=== PATIENT | female | born 1960 | race Two or more races ===

== ENCOUNTER 2021-12-02 14:08 | Emergency (ER) | payer MEDICARE, BC, SELFPAY ==
[2021-12-02 14:19] VITALS: BP 114/68; PULSE 76; RESP 18; TEMP 36.6; O2SAT 99; BMI 18.2
--- NOTE | 2021-12-02 14:29 | CRLHL7_ITS ---
For Patients: As a result of the Century Cures Act, medical imaging exams and procedure reports are released immediately into your electronic medical record. You may view this report before your referring provider. If you have questions, please contact your health care provider. INDICATION: Injury. TECHNIQUE: CT cervical spine without contrast. Coronal and sagittal reformats were generated. COMPARISON: None. FINDINGS: Vertebrae: Alignment is normal. No fractures or suspicious bony lesions. Discs and facet joints: Mild degenerative changes are most prominent at C5-C6 and consists of mild disc space narrowing and small marginal osteophytes. Extraspinal findings: Prevertebral soft tissues, visualized airway, and visualized lungs are unremarkable. IMPRESSION: Unremarkable cervical spine CT. Please note that all CT scans at this facility use dose modulation, iterative reconstruction, and/or weight-based dosing when appropriate to reduce radiation dose to as low as reasonably achievable. Dictated by Wilmar Godwin MD @ 12/02/2021 3:04:56 PM (Electronically Signed)
--- NOTE | 2021-12-02 14:44 | CRLHL7_ITS ---
For Patients: As a result of the Century Cures Act, medical imaging exams and procedure reports are released immediately into your electronic medical record. You may view this report before your referring provider. If you have questions, please contact your health care provider. INDICATION: Fall, injury. TECHNIQUE: CT head without contrast. Coronal and sagittal reformats were generated. COMPARISON: None. FINDINGS: CSF spaces: Within normal limits for age. Brain parenchyma and extra-axial spaces: The elizabeth-white differentiation is normal. No sign of mass, hemorrhage, or midline shift. No extra-axial fluid collection. Skull base and calvarium: The visualized paranasal sinuses and mastoid air cells demonstrate no acute or significant findings. The visualized orbits are grossly unremarkable. No skull fractures. IMPRESSION: No acute intracranial abnormality. Please note that all CT scans at this facility use dose modulation, iterative reconstruction, and/or weight-based dosing when appropriate to reduce radiation dose to as low as reasonably achievable. Dictated by Wilmar Godwin MD @ 12/02/2021 3:05:57 PM (Electronically Signed)
--- NOTE | 2021-12-02 15:04 | ED.GENADULT ---
HPI - General Adult General Time Seen by Provider: 15:04 Date Seen: 12/02/21 Chief complaint: Neck Injury/Pain Stated complaint: Fell two days ago neck pain Time Seen by Provider: 12/02/21 14:33 Source: patient Mode of arrival: ambulatory Limitations: no limitations History of Present Illness HPI narrative: Patient is a 61-year-old female who fell while painting off a table and fell backwards from a few feet. Landed on her back and neck and head area she continues to have some midline neck discomfort special and and a little bit a right-sided neck discomfort in her cervical strap muscles at the base of her skull. She thinks she might have got knocked out briefly as well although not sure about that she has no significant headache now. No other back pain arm or leg symptoms no other neurologic complaints. She simply lost balance. She has generally been quite healthy. Related Data Home Medications Medication Instructions Recorded Confirmed fluoxetine 40 mg capsule (Prozac) 40 mg PO DAILY 12/02/21 12/02/21 gabapentin 300 mg capsule 300 mg PO TID 12/02/21 12/02/21 pantoprazole 20 mg tablet,delayed 20 mg PO DAILY 12/02/21 12/02/21 release (Protonix) Allergies Allergy/AdvReac Type Severity Reaction Status Date / Time carbamazepine [From Tegretol] Allergy Verified 12/02/21 14:23 Review of Systems Status of ROS: Reports: 6 or more systems reviewed and unremarkable except as noted in History and below [facility] Medical History (Updated 12/02/21 @ 15:27 by Kacie Dotson RN) Anxiety Depression Migraine Surgical History (Updated 12/02/21 @ 15:27 by Kacie Dotson RN) No significant past surgical history Social History Smoking Status: Never smoker How often do you have a drink containing alcohol: never AUDIT-C Alcohol total score: 0 Non-prescribed substance use: denies use Exam Narrative: Exam Narrative: Objective: The patient is alert orient x3, pleasant, no distress Neck shows some mild cervical strap muscle tenderness on the right side no midline tenderness Lateral bending is fairly normal rotation is normal to about 80? bilaterally normal strength sensation upper lower extremities chest back back abdomen unremarkable and no complaints. Patient is ambulatory without difficulty. Peripheral exam shows skin warm and dry good peripheral perfusion CT scan of the head and neck pending Const: Vital Signs, click to edit/add: Vital Signs - 24 hr 12/02/21 14:19 Temperature 97.8 F Pulse Rate [Right Pulse Oximeter] 76 Respiratory Rate 18 Blood Pressure [Ri ght Upper Arm] 114/68 Pulse Oximetry 99 Oxygen Delivery Me thod Room Air Course Vital Signs Vital signs: Initial Vital Signs Temperature 97.8 F 12/02/21 14:19 Temperature Source Temporal Artery Scan 12/02/21 14:19 Pulse Rate 76 12/02/21 14:19 Respiratory Rate 18 12/02/21 14:19 Blood Pressure 114/68 12/02/21 14:19 Blood Pressure Mean 83 12/02/21 14:19 Blood Pressure Position Sitting 12/02/21 14:19 Pulse Oximetry 99 12/02/21 14:19 Oxygen Delivery Method 12/02/21 14:19 Vital Signs Temperature 97.8 F 12/02/21 14:19 Pulse Rate 76 12/02/21 14:19 Respiratory Rate 18 12/02/21 14:19 Blood Pressure 114/68 12/02/21 14:19 Pulse Oximetry 99 12/02/21 14:19 Oxygen Delivery Method 12/02/21 14:19 Temperature 97.8 F 12/02/21 14:19 Pulse Rate 76 12/02/21 14:19 Respiratory Rate 18 12/02/21 14:19 Blood Pressure 114/68 12/02/21 14:19 Pulse Oximetry 99 12/02/21 14:19 Oxygen Delivery Method 12/02/21 14:19 Medical Decision Making MDM Narrative Medical decision making narrative: Patient will get a CT scan of her head neck given she still has persistent neck pain and may have loss conscious during this fall 2 days ago. Will review these as a return, will give her prednisone 50 mg orally x1 now and then Toradol 10 mg orally Addendum: The patient's head and neck CT showed chronic changes but no acute findings, recommend she continue Aleve 2 twice a day over the next 3-5 days, ice to the neck area, Tylenol as needed, follow-up Dr. Her Medrano next few days as well. Light activity Discharge Plan Discharge Clinical Impression: Acute neck pain Patient Disposition: Home, Self-Care Condition: Stable Additional Instructions: Light activity recommended ice to the neck as needed, Aleve 2 twice a day for the next 5-7 days Tylenol as needed, follow up with primary care in 2 days for reassessment may consider physical therapy or other modality if not improving. Activity Level: Light activity Discharge Diet: Regular Prescriptions: No Action fluoxetine [Prozac] 40 mg capsule 40 mg PO DAILY gabapentin 300 mg capsule 300 mg PO TID pantoprazole [Protonix] 20 mg tablet,delayed release (DR/EC) 20 mg PO DAILY Follow Up/Referrals: Lakshmi Elizalde MD [Primary Care Provider] - Stand Alone Forms: [employer] Info Instructions
[2021-12-02] MEDS: KETOROLAC 10 MG TABLET PO (15:19)
[2021-12-02] MEDS: predniSONE 10 MG TABLET 50 MG PO (15:21)
== END 2021-12-02 15:44 | disposition home or self-care (01) ==
LOC: ED 15:47
PROVIDERS: Emergency Provider Family Medicine; PCP Family Medicine
DX: M54.2 Cervicalgia (principal)
CPT/HCPCS: 70450; 72125; 99283; 99284; A9270; J7512

== ENCOUNTER 2023-01-22 15:30 | Emergency (ER) | payer BC, MEDICARE, SELFPAY ==
[2023-01-22 15:39] VITALS: BP 123/82; PULSE 99; RESP 16; TEMP 37.1; O2SAT 99; BMI 20.5
--- NOTE | 2023-01-22 15:44 | ED.NURSE ---
Pt has undressed and currently has all belongings, except for phone, in a belongings bag. Security is currently performing inventory on her belongings at this time.
--- NOTE | 2023-01-22 16:05 | ED.PSYCH ---
HPI - Psych General Date Seen: 01/22/23 Chief Complaint: Altered Mental Status Stated Complaint: suicidal Time Seen by Provider: 01/22/23 15:33 Source: patient Mode of arrival: ambulatory Limitations: no limitations History of Present Illness HPI Narrative: Patient is a 62-year-old female with history of depression presenting to the emergency department for suicidal ideation. She states she has been having issues with depression for a while and has been hospitalized several times for it. She has gone to [facility] now multiple times and has been trying the electroconvulsive therapy. She states that will help for the while then she will become depressed again. She was last admitted in December. She states her plan would be to overdose on gabapentin. She thinks she needs her medications adjusted. Denies visual or auditory hallucinations. States occasionally she will her here sounds but she states she has never heard a voice. Denies chest pain, shortness of breath, fevers, chills, weakness, numbness, headache, vision changes. Related Data Home Medications Medication Instructions Recorded Confirmed fluoxetine 40 mg capsule (Prozac) 40 mg PO DAILY 12/02/21 12/02/21 gabapentin 300 mg capsule 300 mg PO TID 12/02/21 12/02/21 pantoprazole 20 mg tablet,delayed 20 mg PO DAILY 12/02/21 12/02/21 release (Protonix) Allergies Allergy/AdvReac Type Severity Reaction Status Date / Time carbamazepine [From Tegretol] Allergy Verified 01/22/23 15:43 Review of Systems Status of ROS: Reports: 10 or more systems reviewed and unremarkable except as noted in History and below [facility] Medical History Anxiety ?F41.9 - Anxiety disorder, unspecified (ICD-10) Depression ?F32.A - Depression, unspecified (ICD-10) Migraine ?G43.909 - Migraine, unspecified, not intractable, without status migrainosus (ICD-10) Surgical History No significant past surgical history Social History Smoking Status: Never smoker How often do you have a drink containing alcohol: never AUDIT-C Alcohol total score: 0 Non-prescribed substance use: denies use Exam Narrative: Exam Narrative: Const: Well-nourished, Well-developed, in mild distress Eyes: PERRL, no conjunctival injection, and symmetrical lids HENT: Atraumatic external nose and ears. Moist mucous membranes. Neck: Symmetric, trachea midline, No thyromegaly. CVS: RRR, No murmurs or gallops. Peripheral pulses 2+ and equal in all extremities RESP: Unlabored respiratory effort. Clear to auscultation bilaterally. GI: Nontender/Nondistended, No rebound or guarding. MSK:Extremities w/o deformity, Normal Active ROM Skin: Warm, Dry. No rashes or lesions. Neuro: Normal Muscle tone, No focal neurological deficits. Psych: Awake, Alert, & Oriented x3. Appropriate mood and affect. Const: Vital Signs, click to edit/add: Vital Signs - 24 hr 01/22/23 15:39 Temperature 98.7 F Pulse Rate [Right Pulse Oximeter] 99 Respiratory Rate 16 Blood Pressure [Ri ght Upper Arm] 123/82 Pulse Oximetry 99 Oxygen Delivery Me thod Room Air Course Vital Signs Vital signs: Initial Vital Signs Temperature 98.7 F 01/22/23 15:39 Temperature Source Temporal Artery Scan 01/22/23 15:39 Pulse Rate 99 01/22/23 15:39 Pulse Rhythm Regular 01/22/23 15:39 Pulse Strength 3+ Normal 01/22/23 15:39 Respiratory Rate 16 01/22/23 15:39 Blood Pressure 123/82 01/22/23 15:39 Blood Pressure Mean 95 01/22/23 15:39 Blood Pressure Position Sitting 01/22/23 15:39 Pulse Oximetry 99 01/22/23 15:39 Oxygen Delivery Method Room Air 01/22/23 15:39 Vital Signs Temperature 98.7 F 01/22/23 15:39 Pulse Rate 99 01/22/23 15:39 Respiratory Rate 16 01/22/23 15:39 Blood Pressure 123/82 01/22/23 15:39 Pulse Oximetry 99 01/22/23 15:39 Oxygen Delivery Method Room Air 01/22/23 15:39 Temperature 98.7 F 01/22/23 15:39 Pulse Rate 99 01/22/23 15:39 Respiratory Rate 16 01/22/23 15:39 Blood Pressure 123/82 01/22/23 15:39 Pulse Oximetry 99 01/22/23 15:39 Oxygen Delivery Method Room Air 01/22/23 15:39 MDM - Psych MDM Narrative Medical decision making narrative: Patient is 62 female presenting to emergency department for suicidal ideation. She has had multiple hospitalizations and states she has a plan. Patient was placed in a safe room. Lab work was ordered for mental health evaluation. Patient agrees to a DEC assessment. CBC, CMP, acetaminophen level, salicylate level, ethanol level all returned showing no concerning abnormalities. After she was evaluated by DEC they recommended inpatient treatment and she is agreeable to this plan right now. Drug screen shows tricyclic antidepressants, benzodiazepines, marijuana. COVID/flu/RSV is negative. Patient has been stable throughout her time in emergency department. She is accepted at [facility] and the fever falls. She is medically cleared for transfer. Lab Data Labs: Lab Results 01/22/23 01/22/23 01/22/23 Range/Units 16:00 17:18 18:15 WBC 6.45 (4.50-11.00) K/uL RBC 5.01 (4.00-5.20) m/uL Hgb 14.1 (12.0-16.0) gm/dL Hct 42.2 (33.0-51.0) % MCV 84 (80-100) fL MCH 28 (26-34) pg MCHC 33 (32-36) gm/dL RDW Coeff of [place]aston 14.0 (11.5-15.5) % Plt Count 341 (140-440) K/uL Neut % (Auto) 69.9 (42.0-72.0) % Lymph % (Auto) 21.9 (20-44) % [place] % (Auto) 6.4 (0.0-11.0) % Eos % (Auto) 0.8 (0.0-7.0) % Baso % (Auto) 0.5 (0.0-3.0) % Neut # (Auto) 4.52 (1.7-7.0) K/uL Lymph # (Auto) 1.41 (0.90-2.90) K/uL [place] # (Auto) 0.40 (0.00-0.90) K/UL Eos # (Auto) 0.05 (0.00-0.50) K/uL Baso # (Auto) 0.03 (0.00-0.30) K/uL Abs Immat Gran (auto) 0.03 (0.00-0.30) K/uL Imm/Tot Granulo (auto) 0.5 % Sodium 137 (135-149) mmol/L Potassium 3.7 (3.6-5.1) mmol/L Chloride 106 (96-114) mmol/L Carbon Dioxide 22 (20-32) mmol/L Anion Gap 9 (7-15) mEq/L BUN 16 (7-30) mg/dL Creatinine 0.9 (0.5-1.5) mg/dL Estimated Creat Clear 47.63 Estimated GFR 72 ml/min Glucose 113 (60-115) mg/dL Calcium 8.7 (8.4-10.6) mg/dL Total Bilirubin 0.5 (0.1-1.5) mg/dL AST 42 H (12-35) U/L ALT 22 (4-35) U/L Alkaline Phosphatase 80 (40-150) U/L Total Protein 7.5 (6.0-8.3) g/dL Albumin 4.4 (3.3-5.0) g/dL Urine Color Yellow (Yellow) Urine Appearance Clear (Clear) Urine pH 6.0 (5.0-8.5) Ur Specific [place] 1.025 (1.000-1.030) Urine Protein Negative (Negative) Urine Glucose (UA) Negative (Negative) Urine Ketones Negative (Negative) Urine Blood Negative (Negative) Urine Nitrite Negative (Negative) Urine Bilirubin Negative (Negative) Urine Urobilinogen 0.2 (0.2-1.0) Ur Leukocyte Esterase Negative (Negative) Salicylates < 1.0 L (1.0-10) mg/dL Urine Opiates Screen Negative (Negative) Ur Oxycodone Screen Negative (Negative) Urine Methadone Screen Negative (Negative) Ur Propoxyphene Screen Negative (Negative) Acetaminophen < 10.0 L (10.0-30.0) ug/mL Ur Barbiturates Screen Negative (Negative) U Tricyclic Antidepress POSITIVE A (Negative) Ur Phencyclidine Scrn Negative (Negative) Ur Amphetamines Screen Negative (Negative) U Methamphetamines Scrn Negative (Negative) U Benzodiazepines Scrn POSITIVE A (Negative) Urine Cocaine Screen Negative (Negative) U Marijuana (THC) Screen POSITIVE A (Negative) Ur Drug Screen Comment See Note Ethyl Alcohol < 0.01 L (0.01-0.03) % SARS-CoV-2 (PCR) Negative SARS-CoV-2 (Negative) Influenza Type A (PCR) Negative PCR FLU A (Negative) Influenza Type B (PCR) Negative PCR FLU B (Negative) RSV (PCR) Negative PCR RSV (Negative) Discharge Plan Discharge Clinical Impression: Suicidal ideation Patient Disposition: Xfer Other Condition: Stable Prescriptions: No Action fluoxetine [Prozac] 40 mg capsule 40 mg PO DAILY gabapentin 300 mg capsule 300 mg PO TID pantoprazole [Protonix] 20 mg tablet,delayed release (DR/EC) 20 mg PO DAILY Follow Up/Referrals: Lkashmi Elizalde MD [Primary Care Provider] - Stand Alone Forms: [employer] Info Instructions
[2023-01-22 16:06] LABS: Basophils Absolute Auto 0.03 K/uL (0.00-0.30); Basophils Percent Auto 0.5 % (0.0-3.0); Eosinophils Absolute Auto 0.05 K/uL (0.00-0.50); Eosinophils Percent Auto 0.8 % (0.0-7.0); Hematocrit 42.2 % (33.0-51.0); Hemoglobin* 14.1 gm/dL (12.0-16.0); Immature Granulocytes Abs Auto 0.03 K/uL (0.00-0.30); Immature Granulocytes Pct Auto 0.5 %; Lymphocytes Absolute Auto 1.41 K/uL (0.90-2.90); Lymphocytes Percent Auto 21.9 % (20-44); Mean Corpuscular HGB Conc 33 gm/dL (32-36); Mean Corpuscular Hemoglobin 28 pg (26-34); Mean Corpuscular Volume 84 fL (80-100); Monocytes Percent Auto 6.4 % (0.0-11.0); Neutrophils Absolute Auto 4.52 K/uL (1.7-7.0); Neutrophils Percent Auto 69.9 % (42.0-72.0); Platelet Count* 341 K/uL (140-440); Red Blood Count 5.01 m/uL (4.00-5.20); White Blood Count* 6.45 K/uL (4.50-11.00)
[2023-01-22 16:07] LABS: Slide Review Reflex No
[2023-01-22 16:18] LABS: Albumin* 4.4 g/dL (3.3-5.0); Chloride* 106 mmol/L (96-114)
[2023-01-22 16:19] LABS: Potassium* 3.7 mmol/L (3.6-5.1); Sodium* 137 mmol/L (135-149)
[2023-01-22 16:21] LABS: Alanine Aminotransferase* 22 U/L (4-35); Alkaline Phosphatase* 80 U/L (40-150); Anion Gap 9 mEq/L (7-15); Aspartate Amino Transferase* 42 U/L (12-35); Bilirubin Total* 0.5 mg/dL (0.1-1.5); Blood Urea Nitrogen* 16 mg/dL (7-30); Carbon Dioxide* 22 mmol/L (20-32); Creatinine* 0.9 mg/dL (0.5-1.5); Est. Creatinine Clearance* 47.63; Estimated Glomerular Filt Rate 72 ml/min; Total Protein* 7.5 g/dL (6.0-8.3)
[2023-01-22 16:22] LABS: Calcium* 8.7 mg/dL (8.4-10.6); Glucose* 113 mg/dL (60-115)
[2023-01-22 16:27] LABS: Acetaminophen* < 10.0 ug/mL (10.0-30.0); Ethanol* < 0.01 % (0.01-0.03); Salicylate* < 1.0 mg/dL (1.0-10)
--- NOTE | 2023-01-22 17:13 | ED.NURSE ---
Pt states that she is not hungry x3 and declines supper.
[2023-01-22 17:27] LABS: Appearance Urine Clear (Clear); Bilirubin Urine Negative (Negative); Blood Urine Negative (Negative); Color Urine Yellow (Yellow); Glucose Urine Negative (Negative); Ketones Urine Negative (Negative); Leukocyte Esterase Urine Negative (Negative); Nitrite Urine Negative (Negative); Protein Urine Negative (Negative); Specific Gravity Urine 1.025 (1.000-1.030); Urobilinogen Urine 0.2 (0.2-1.0)
[2023-01-22 17:33] LABS: Amphetamine Screen Urine Negative (Negative); Barbiturate Screen Urine Negative (Negative); Benzodiazepines Screen Urine POSITIVE (Negative); Cannabinoid Screen Urine POSITIVE (Negative); Cocaine Screen Urine Negative (Negative); Methadone Screen Urine Negative (Negative); Methamphetamines Screen Urine Negative (Negative); Opiate Screen Urine Negative (Negative); Oxycodone Screen Urine Negative (Negative); Phencyclidine Screen Urine Negative (Negative); Tricyclic Antidepressant Urine POSITIVE (Negative)
[2023-01-22 19:06] LABS: PCR FLU A Negative PCR FLU A (Negative); PCR FLU B Negative PCR FLU B (Negative); PCR RSV Negative PCR RSV (Negative)
[2023-01-22 19:20] LABS: SARS PCR* Negative SARS-CoV-2 (Negative)
--- NOTE | 2023-01-22 22:30 | ED.NURSE ---
Checked on patient numerous times during this shift. Pt calm, pleasant and cooperative. Pt declines anything to eat and has numerous cups of water to drink. Pt states she does not want medication to sleep, even tho this nurse has offered her meds. Pt does not want to brush her teeth either and has only requested one blanket this shift.
[2023-01-22 22:46] VITALS: BP 103/77; PULSE 96; RESP 16; TEMP 36.1; O2SAT 98
[2023-01-22] MEDS: hydrOXYzine pamoate 25 MG CAPSULE 50 MG PO (22:58)
[2023-01-23] MEDS: OLANZapine 5 MG TAB.RAPDIS PO (01:12)
[2023-01-23 05:20] VITALS: BP 108/74; PULSE 89; RESP 16; TEMP 36.7; O2SAT 98
--- NOTE | 2023-01-23 06:11 | ED.NURSE ---
report given to Rani NORWOOD @ [facility]. pt. on transport hold and voluntary at this time. vitals stable. video monitoring for safety.
[2023-01-23 07:47] VITALS: BP 134/86; PULSE 139; RESP 18; TEMP 36.7; O2SAT 95
[2023-01-23 09:27] VITALS: BP 104/73; PULSE 86; RESP 16; TEMP 37.3; O2SAT 97
--- NOTE | 2023-01-23 09:31 | ED.NURSE ---
woke for vitals and breakfast. EMS expected at 1000
== END 2023-01-23 10:34 | disposition other institution (70) ==
PROVIDERS: Student in an Organized Health Care Education/Training Program; Emergency Provider Family Medicine; PCP Family Medicine
DX: R45.851 Suicidal ideations (principal)
CPT/HCPCS: 36415; 80053; 80143; 80179; 80306; 81003; 82077; 85025; 87631; 99283; 99285; A9270

== ENCOUNTER 2023-01-23 10:19 | Outpatient (CLI) | payer MEDICARE, BC, SELFPAY | END 2023-01-23 10:20 | disposition home or self-care (01) | LOC: AMB 02-16 10:44 | PROVIDERS: Visit Provider Family Medicine | DX: R45.851 Suicidal ideations (principal) | CPT/HCPCS: A0425; A0428 ==

== ENCOUNTER 2023-04-13 14:18 | Outpatient (CLI) | payer BC, MEDICARE, SELFPAY | END 2023-04-13 14:19 | disposition home or self-care (01) | PROVIDERS: PCP Internal Medicine; Visit Provider Family Medicine | DX: R45.851 Suicidal ideations (principal) | CPT/HCPCS: A0425; A0429 ==

== ENCOUNTER 2023-08-02 10:09 | Emergency (ER) | payer BC, MEDICARE, SELFPAY ==
[2023-08-02 10:16] VITALS: BP 106/75; PULSE 93; RESP 18; TEMP 36.9; O2SAT 96; BMI 22.0
--- NOTE | 2023-08-02 10:18 | XR_ITS ---
Patient: ZEESHAN DURANMARLIN Facility:?[facility] Patient ID:?[id number] Site Patient ID:?[id number]. Site :?[id number] Study:?XRay-Chest 2 view-08/02/2023 10:46:39 AM Ordering Physician:?Malvin Jain Final Report: Indication: Fall, pain under right breast Comparison: None available. Technique: PA and lateral views of the chest Findings: There is hyperinflation and chronic interstitial change without evidence of dense consolidation, effusion or pneumothorax. The cardiomediastinal silhouette is within normal limits. The bony thorax is grossly intact. Impression: Hyperinflation and chronic interstitial change without evidence of dense consolidation. Dictated by Venkata Anderson MD @ 08/02/2023 10:52:08 AM Signed by:?Venkata Anderson MD @08/02/2023 10:52:08 AM (Electronic Signature)
--- NOTE | 2023-08-02 11:17 | CT_ITS ---
Patient: ZEESHAN SHIN [facility] Facility:?[facility] Patient ID:?[id number] Site Patient ID:?[id number]. Site :?[id number] Study:?CT-Chest 75CC ISOVUE 370-08/02/2023 12:59:35 PM Ordering Physician:?DR. BOBO Final Report: INDICATION: Trauma. Right chest wall pain. TECHNIQUE: Multiplanar CT examination of the chest was performed after the administration of 75 mL of Isovue 370 intravenous contrast. COMPARISON: Same-day chest radiographs. FINDINGS: Lower neck: The visualized thyroid is unremarkable. Cardiovascular: Heart size is normal. Thoracic aorta and pulmonary artery are normal in caliber. No significant atherosclerotic calcifications of the aortic arch. No significant coronary arterial calcifications. No large central pulmonary embolus. Mediastinum and lymph nodes: Unremarkable. No pathologic mediastinal or hilar lymphadenopathy by size criteria. Lungs: No focal consolidation. Dependent atelectasis. Linear bandlike opacification of the lung bases bilaterally, likely subsegmental atelectasis and/or scarring. Airways: The trachea remains patent and midline. Mild diffuse peribronchial wall thickening. Pleura: Small right-sided pleural effusion. No left pleural effusion or pneumothorax. Chest wall: Postsurgical changes of the right breast. Bones: Contour irregularity to the right 9th and 10th ribs posteriorly (4:51 and 4:56), suspicious for subtle acute nondisplaced fractures. Mild degenerative changes of the thoracic spine. Upper abdomen: Unremarkable. IMPRESSION: 1. Small right-sided pleural effusion with suspected acute nondisplaced fractures of the right 9th and 10th ribs posteriorly. 2. Postsurgical change within the right breast without underlying subjacent displaced acute rib fractures anteriorly. 3. No pneumothorax. Please note that all CT scans at this facility use dose modulation, iterative reconstruction, and/or weight-based dosing when appropriate to reduce radiation dose to as low as reasonably achievable. Dictated by Gumaro Vargas MD @ 08/02/2023 1:26:18 PM Signed by:?Gumaro Vargas MD @08/02/2023 1:26:18 PM (Electronic Signature)
[2023-08-02] MEDS: 0.9 % SODIUM CHLORIDE 1000 ml 1,000 ML IV (11:31)
[2023-08-02] MEDS: KETOROLAC 15 MG/ML inj IVP (11:38)
--- NOTE | 2023-08-02 12:06 | ED_ITS ---
HPI - General Adult General Date Seen: 08/02/23 Chief complaint: Fall/Minor Trauma Stated complaint: fall yesterday, lots of pain in chest Time Seen by Provider: 08/02/23 11:04 Source: patient Mode of arrival: ambulatory Limitations: no limitations History of Present Illness HPI narrative: Patient is a 63-year-old woman who says yesterday she was standing up on the counter in her bathroom by the sink replacing a light bulb. She lost her balance and fell off, she says she was holding the light bulb with her hand and so she really did not catch her fall, and instead her right chest hit the edge of the counter. She has had localized pain under the right breast since then. She has saline implants, and feels like the implant ?tore loose. She has pain with moving and pushing on the chest, but does deny pain with breathing. Does not feel short of breath. Tried some Tylenol and says that was not helpful. Has not noted any bruising or swelling, no deflation of the implant. Denies any head or neck, back or other injury. Related Data Home Medications Medication Instructions Recorded Confirmed fluoxetine 40 mg capsule (Prozac) 40 mg PO DAILY 12/02/21 02/15/23 gabapentin 300 mg capsule 300 mg PO TID 12/02/21 02/15/23 pantoprazole 20 mg tablet,delayed 20 mg PO DAILY 12/02/21 02/15/23 release (Protonix) amitriptyline 25 mg tablet 25 mg PO QPM 02/15/23 02/15/23 asenapine maleate 5 mg sublingual mg sublingual 02/15/23 02/15/23 tablet atorvastatin 40 mg tablet 40 mg PO DAILY 02/15/23 02/15/23 buspirone 10 mg tablet 10 mg PO BID 02/15/23 02/15/23 cariprazine 3 mg capsule (Vraylar) 3 mg PO DAILY 02/15/23 02/15/23 clonazepam 0.5 mg tablet mg PO 02/15/23 02/15/23 cyclobenzaprine 5 mg tablet 5 mg PO 3XD PRN 02/15/23 02/15/23 dextroamphetamine-amphetamine 20 1 tab PO DAILY 02/15/23 02/15/23 mg tablet diazepam 5 mg tablet 5 mg PO DAILY PRN 02/15/23 02/15/23 guanfacine 2 mg tablet,extended 2 mg PO DAILY 02/15/23 02/15/23 release 24 hr hydroxyzine HCl 50 mg tablet 50 mg PO 3XD 02/15/23 02/15/23 lorazepam 0.5 mg tablet 0.5 mg PO DAILY PRN 02/15/23 02/15/23 naproxen 500 mg tablet 500 mg PO BID 02/15/23 02/15/23 olanzapine 20 mg tablet 20 mg PO QPM 02/15/23 02/15/23 promethazine 25 mg tablet 25 mg PO Q12H PRN nausea/vomiting 02/15/23 02/15/23 rizatriptan 10 mg tablet mg PO 02/15/23 02/15/23 sumatriptan succinate 50 mg tablet mg PO 02/15/23 02/15/23 tizanidine 4 mg tablet mg PO 02/15/23 02/15/23 trazodone 150 mg tablet 150 mg PO QPM 02/15/23 02/15/23 Allergies Allergy/AdvReac Type Severity Reaction Status Date / Time carbamazepine [From Tegretol] Allergy Verified 02/15/23 08:45 Review of Systems Status of ROS: Reports: 10 or more systems reviewed and unremarkable except as noted in History and below PFSH [facility] Medical History Anxiety ?F41.9 - Anxiety disorder, unspecified (ICD-10) Depression ?F32.A - Depression, unspecified (ICD-10) Migraine ?G43.909 - Migraine, unspecified, not intractable, without status migrainosus (ICD-10) Surgical History No significant past surgical history Social History Smoking Status: Never smoker How often do you have a drink containing alcohol: never AUDIT-C Alcohol total score: 0 Non-prescribed substance use: denies use Little interest or pleasure in doing things: more than half the days Feeling down, depressed, or hopeless: more than half the days Exam Narrative: Exam Narrative: Vital signs as noted above. In general, an alert, well-appearing patient. Head: Normocephalic, atraumatic. Eyes: Pupils are equal reactive. Extraocular movements are full. Conjunctivae are normal. ENT: Mucous membranes are moist. Throat is normal. Neck: Supple without lymphadenopathy. Heart: Regular rate and rhythm. No murmur or rub. Lungs: Clear bilaterally. No increased work of breathing, crackles or wheezes. Chest wall is nontraumatic in appearance, no bruising, swelling, crepitus or subcu air. The implant feels normal and equal bilaterally. Abdomen: Soft and nontender. No organomegaly. Extremities: Well perfused. No edema. No calf tenderness. Pulses intact. Neurologic: Patient is alert and oriented to person and place. Speech is fluent. Face is symmetric. Moves all extremities equally. Affect: Normal. Skin: Warm and dry. Well perfused. Const: Vital Signs, click to edit/add: Vital Signs - 24 hr 08/02/23 10:16 Temperature 98.5 F Pulse Rate [Pulse Oximeter] 93 Respiratory Rate 18 Blood Pressure [Ri ght Upper Arm] 106/75 Pulse Oximetry 96 Oxygen Delivery Me thod Room Air Documenting provider has reviewed patient's vital signs: yes Course Course ED Course: I recommended that we pursue CT scan for her, I think regardless the most information in terms of possible rib fracture, pulmonary injury, as well as let us look for changes to the implant. She does request something for pain, will try Toradol to start. She did not note significant improvement with the Toradol, does not want anything else for here but does request something different for home. She went on to have a CT scan, I do not see any obvious rib fractures, radiology read as follows:FINDINGS: Lower neck: The visualized thyroid is unremarkable. Cardiovascular: Heart size is normal. Thoracic aorta and pulmonary artery are normal in caliber. No significant atherosclerotic calcifications of the aortic arch. No significant coronary arterial calcifications. No large central pulmonary embolus. Mediastinum and lymph nodes: Unremarkable. No pathologic mediastinal or hilar lymphadenopathy by size criteria. Lungs: No focal consolidation. Dependent atelectasis. Linear bandlike opacification of the lung bases bilaterally, likely subsegmental atelectasis and/or scarring. Airways: The trachea remains patent and midline. Mild diffuse peribronchial wall thickening. Pleura: Small right-sided pleural effusion. No left pleural effusion or pneumothorax. Chest wall: Postsurgical changes of the right breast. Bones: Contour irregularity to the right 9th and 10th ribs posteriorly (4:51 and 4:56), suspicious for subtle acute nondisplaced fractures. Mild degenerative changes of the thoracic spine. Upper abdomen: Unremarkable. IMPRESSION: 1. Small right-sided pleural effusion with suspected acute nondisplaced fractures of the right 9th and 10th ribs posteriorly. 2. Postsurgical change within the right breast without underlying subjacent displaced acute rib fractures anteriorly. 3. No pneumothorax. I went back and reviewed this with her. I am not able to identify any areas of posterior rib tenderness, and so I am wondering if the irregularities noted by the radiologist are incidental or related to old trauma. In any case, her exam is benign, O2 sats are normal, and I think it is reasonable to discharge her home. I have given her oxycodone 8. From [facility]. I have asked her to take ibuprofen and Tylenol 3 times daily as her baseline pain control. Discussed reasons to return, discussed natural history of rib fractures if these are in fact real, for worsening or new symptoms such as fever or shortness of breath return to the emergency department. For ongoing concerns, see primary care. Vital Signs Vital signs: Initial Vital Signs Temperature 98.5 F 08/02/23 10:16 Temperature Source Temporal Artery Scan 08/02/23 10:16 Pulse Rate 93 08/02/23 10:16 Respiratory Rate 18 08/02/23 10:16 Blood Pressure 106/75 08/02/23 10:16 Blood Pressure Mean 85 08/02/23 10:16 Pulse Oximetry 96 08/02/23 10:16 Oxygen Delivery Method Room Air 08/02/23 10:16 Vital Signs Temperature 98.5 F 08/02/23 10:16 Pulse Rate 93 08/02/23 10:16 Respiratory Rate 18 08/02/23 10:16 Blood Pressure 106/75 08/02/23 10:16 Pulse Oximetry 96 08/02/23 10:16 Oxygen Delivery Method Room Air 08/02/23 10:16 Temperature 98.5 F 08/02/23 10:16 Pulse Rate 93 08/02/23 10:16 Respiratory Rate 18 08/02/23 10:16 Blood Pressure 106/75 08/02/23 10:16 Pulse Oximetry 96 08/02/23 10:16 Oxygen Delivery Method Room Air 08/02/23 10:16 Medications Administered Medications: Discontinued Medications Generic Name Dose Route Start Last Admin Trade Name Adelaida PRN Reason Stop Dose Admin Sodium Chloride 1,000 mls @ 1,000 mls/hr 08/02/23 11:30 08/02/23 12:30 0.9 % Sodium Chloride 1000 Ml IV 08/02/23 12:29 Infused .Q1H FROILAN Infusion Ketorolac Tromethamine 15 mg 08/02/23 11:16 08/02/23 11:38 Ketorolac 15 Mg/Ml Inj IVP 08/02/23 11:17 15 mg ONCE ONE Administration Medical Decision Making Lab Data Labs: Lab Results 08/02/23 Range/Units 12:08 POC Creatinine 1.0 (0.6-1.3) mg/dl Discharge Plan Discharge Clinical Impression: Chest wall trauma Patient Disposition: Home, Self-Care Condition: Stable Instructions: Rib Fracture (ED) Additional Instructions: Ibuprofen 400 mg plus Tylenol 1000 mg 3 times daily for pain. Oxycodone if needed for more severe uncontrolled pain. Your CT scan shows possibly small nondisplaced rib fractures of the 9th and 10th ribs, but these are in the back of your rib cage, in an area where you do not have significant pain. Therefore, not certain whether these fractures are real or not. There is no evidence of fracture in the front where you do have pain. I would expect areas of bruising in the front to improve over the next week. If at any time you have severe uncontrolled pain, difficulty breathing, fevers or other new symptoms return to the emergency department. See your primary doctor in a week if ongoing concerns. Prescriptions: No Action asenapine maleate 5 mg tablet, sublingual sublingual guanfacine 2 mg tablet extended release 24 hr 2 mg PO DAILY buspirone 10 mg tablet 10 mg PO BID trazodone 150 mg tablet 150 mg PO QPM hydroxyzine HCl 50 mg tablet 50 mg PO 3XD naproxen 500 mg tablet 500 mg PO BID amitriptyline 25 mg tablet 25 mg PO QPM rizatriptan 10 mg tablet PO Vraylar 3 mg capsule 3 mg PO DAILY lorazepam 0.5 mg tablet 0.5 mg PO DAILY PRN tizanidine 4 mg tablet PO cyclobenzaprine 5 mg tablet 5 mg PO 3XD PRN sumatriptan succinate 50 mg tablet PO atorvastatin 40 mg tablet 40 mg PO DAILY olanzapine 20 mg tablet 20 mg PO QPM diazepam 5 mg tablet 5 mg PO DAILY PRN clonazepam 0.5 mg tablet PO promethazine 25 mg tablet 25 mg PO Q12H PRN (Reason: nausea/vomiting) dextroamphetamine-amphetamine 20 mg tablet 1 tab PO DAILY fluoxetine [Prozac] 40 mg capsule 40 mg PO DAILY gabapentin 300 mg capsule 300 mg PO TID pantoprazole [Protonix] 20 mg tablet,delayed release (DR/EC) 20 mg PO DAILY Follow Up/Referrals: Shelly Chambers MD [Primary Care Provider] - Stand Alone Forms: [facility] Info Instructions
[2023-08-02 13:35] VITALS: BP 140/90; PULSE 80; O2SAT 98
[2023-08-02 13:36] VITALS: PULSE 80; O2SAT 98
[2023-08-02 13:45] VITALS: PULSE 77; O2SAT 97
[2023-08-02 14:02] VITALS: BP 140/90; PULSE 74; RESP 18; O2SAT 98
== END 2023-08-02 14:03 | disposition home or self-care (01) ==
PROVIDERS: Emergency Provider Emergency Medicine; PCP Internal Medicine
DX: S20.211A Contusion of right front wall of thorax, initial encounter (principal); W17.89XA Other fall from one level to another, initial encounter
CPT/HCPCS: 71046; 71260; 82565; 96374; 99284; 99285; J1885; J7030; Q9967

== ENCOUNTER 2023-10-21 13:49 | Outpatient (CLI) | payer BC, MEDICARE, SELFPAY ==
--- NOTE | 2023-10-21 13:57 | W.ANESCHARGE ---
Anesthesia Charges Start Date/Time Anesthesia Start Date: 10/21/23 Anesthesia Start Time: 14:10 Stop Date/Time Anesthesia Stop Date: 10/21/23 Anesthesia Stop Time: 14:45
--- NOTE | 2023-10-21 14:53 | W.ANESCHARGE ---
Anesthesia Charges Start Date/Time Anesthesia Start Date: 10/21/23 Anesthesia Start Time: 14:10 Stop Date/Time Anesthesia Stop Date: 10/21/23 Anesthesia Stop Time: 14:45
== END 2023-10-21 13:50 | disposition home or self-care (01) ==
LOC: OP CLINIC 13:51
PROVIDERS: Visit Provider Internal Medicine Gastroenterology
DX: Z12.11 Encounter for screening for malignant neoplasm of colon (principal); Z80.0 Family history of malignant neoplasm of digestive organs
CPT/HCPCS: 00811; 00812; 45378; J2704